=== PATIENT | male | born 1975 | race Caucasian/White ===

== ENCOUNTER 2020-02-10 22:15 | Emergency (ER) | payer SELFPAY ==
[2020-02-10 22:47] LABS: Bilirubin Negative (Negative); Blood, Urine Large (Negative); Glucose, Urine (Dipstick) Negative (Negative); Ketone, Urine Negative (Negative); Leukocyte Negative (Negative); Nitrite Negative (Negative); Protein, Urine (Dipstick) Trace mg/dL (Neg-Trace); Urobilinogen 0.2 mg/dL (Less than 2); pH, Urine 5.5 (5.0-9.0)
[2020-02-10 22:48] LABS: Clarity Hazy (Clear)
[2020-02-10 22:49] LABS: Specific Gravity, Urine 1.032 (1.002-1.036)
[2020-02-10 22:52] LABS: RBC/HPF 21-50 HPF (0-3)
[2020-02-10 22:53] LABS: Bacteria/HPF Rare-Few HPF (None Seen); Mucous/LPF 1+ LPF (<2+); Squamous Epithelial 0-3 HPF (0-3)
[2020-02-10 22:59] LABS: #Basophils 0.1 thou/uL (0.0-0.2); #Eosinphils 0.3 thou/uL (0.0-0.7); #Monocytes 0.9 thou/uL (0.11-0.59); #Neutrophils 9.8 thou/uL (1.40-6.50); %Basophils 0.9 % (0.0-1.0); %Eosinophils 2.4 % (0.0-10.0); %Lymphocytes 21.2 % (21.0-51.0); %Monocytes 6.5 % (0.0-10.0); Hemoglobin 15.6 g/dL (14.0-18.0); Mean Corpuscular HGB CONC 35.5 g/dL (32.0-36.0); Mean Corpuscular Hemoglobin 32.7 pg (27.0-31.0); Mean Corpuscular Volume 92.2 fL (78.0-98.0); Mean Platelet Volume 7.1 fL (7.4-10.4); Platelet Count 365 thou/uL (130-400); RBC Distribution Width 12.1 % (11.5-14.5); Red Blood Cell (RBC) Count 4.76 mill/uL (4.70-6.10); White Blood Cell (WBC) Count 14.2 thou/uL (4.8-10.8)
[2020-02-10 23:19] LABS: ALT (SGPT) 17 U/L (8-55); AST (SGOT) 12 U/L (5-34); Albumin 4.5 g/dL (3.5-5.0); Alkaline Phosphatase 73 U/L (40-110); Anion Gap 15 mmol/L (10-20); BUN (Urea Nitrogen) 17 mg/dL (8.9-20.6); Bilirubin, Total 0.3 mg/dL (0.2-1.2); Calc. Creatinine Clearance 0 mL/min (70-130); Calcium 9.5 mg/dL (7.8-10.44); Carbon Dioxide 26 mmol/L (22-29); Chloride 103 mmol/L (98-107); Estimated GFR-MDRD 62; Globulin 2.9 g/dL (2.4-3.5); Glucose 141 mg/dL (70-105); Potassium 3.9 mmol/L (3.5-5.1); Protein, Total 7.4 g/dL (6.0-8.3); Sodium 140 mmol/L (136-145)
[2020-02-10] MEDS ORDERED: Morphine 4 MG/ML VIAL ONE (23:31)
--- NOTE | 2020-02-10 23:31 | CT ---
CT Stone Protocol 02/10/2020 11:05 PM HISTORY: Right flank pain with nausea. COMPARISON: None. Technique: Multiple contiguous axial CT images are obtained through the abdomen and pelvis without IV contrast. Coronal reformats are provided. FINDINGS: This examination is limited for the evaluation of solid organs and vascular structures due to the lac k of intravenous contrast. Lower Chest: Lung bases are clear. Liver: Grossly normal non-enhanced CT appearance. Gallbladder: Within normal limits for CT imaging. Pancreas: Grossly normal nonenhanced CT appearance. Spleen: Splenic granuloma. Adrenals: Grossly normal nonenhanced CT appearance. Kidneys, ureters, urinary bladder: A 2 to 3 mm nonobstructing calculus is seen in the midportion left kidney. No right renal calculus is seen. However, there is mild right hydronephrosis and hydroureter with a right UVJ calculus present measuring 3 mm. No left hydronephrosis or hydroureter i s present. Urinary bladder is decompressed and not well evaluated. Reproductive Organs: No pelvic masses. Lymph Nodes: No enlarged lymph nodes. Bowel: Normal caliber. Appendix: The appendix is normal in caliber. Peritoneum: No free fluid, free air, or fluid collection. Retroperitoneum: within normal limits. Vessels: Abdominal aorta is normal in caliber.. Abdominal Wall: within normal limits. Bones: No lytic or sclerotic osseous lesions. IMPRESSION: 1. Partially obstructing right UVJ calculus measuring 3 mm. 2. Nonobstructing left renal calculus.
[2020-02-10] MEDS ORDERED: Ketorolac Tromethamine 30 MG/ML VIAL ONE (23:35)
[2020-02-10] MEDS ORDERED: Ondansetron PF 4 MG/2 ML Vial ONE (23:38)
== END 2020-02-11 03:47 | disposition home or self-care (01) ==
LOC: ERS 22:15
DX: N13.2 Hydronephrosis with renal and ureteral calculous obstruction (principal); F17.210 Nicotine dependence, cigarettes, uncomplicated
CPT/HCPCS: 36415; 74176; 80053; 81003; 81015; 85025; 87086; 96374; 96375; J1885; J2270; J2405